=== PATIENT | male | born 1985 | race Caucasian/White ===

== ENCOUNTER 2023-01-29 08:57 | Emergency (ER) | payer BC, SELFPAY ==
[2023-01-29 09:03] VITALS: BP 130/72; PULSE 113; RESP 16; TEMP 36.9; O2SAT 99
--- NOTE | 2023-01-29 09:14 | ED.DENTAL ---
HPI - Dental/Oral General Chief complaint: Dental/Oral Stated complaint: tooth pain Time Seen by Provider: 01/29/23 09:14 Source: patient, RN notes reviewed and old records reviewed Mode of arrival: ambulatory Limitations: no limitations History of Present Illness HPI Narrative: 37-year-old male who presents to [facility] with complaints of dental pain which initially started 2 weeks ago but did resolve on its own but then reoccurred 3 days ago to molar # 30 on right side with facial/jaw swelling noted . Patient states that he broke his tooth off eating a corn nut a few months ago Patient reports no difficulty with swallowing or breathing. Patient reports that he has been taking Ibuprofen for his discomfort. MD Complaint: tooth pain Location: Tooth # (30) Onset (ago): week(s) (initially 2 weeks resolved and resumed 3 days ago) Severity scale (1-10): 8 Treatment prior to arrival: oral analgesic (Ibuprofen) Related Data Allergies Allergy/AdvReac Type Severity Reaction Status Date / Time No Known Allergies Allergy Verified 01/29/23 09:09 Review of Systems Review of Systems: CONSTITUTIONAL: Denies fever, chills, or sweats. ENT: Denies rhinorrhea, congestion, sore throat, or otalgia. Reports dental pain to right molar#30 which is broken off with right sided facial swelling CARDIOVASCULAR: Denies chest pain, palpitations, or edema. RESPIRATORY: Denies cough or dyspnea. SKIN: Denies rash or itching. MUSCULOSKELETAL: Denies myalgia. NEUROLOGIC: Denies headache All systems reviewed & are unremarkable except as noted in HPI and below PMFSH Social History Social History (Updated 01/30/23 @ 11:41 by Cherelle Jimenes NP) Smoking status: Current every day smoker Tobacco type: cigarettes Alcohol intake: current Alcohol use details: social Substance use type: does not use Living arrangements: with family Gender identity (if verbalized by the patient): Male Comments At time of signature, agree with nursing past medical, surgical, social and family history. There is no relevant family history pertinent to the presenting complaint Exam Narrative: GENERAL: Well-appearing, well-nourished, and in no acute distress. HEAD: Normocephalic, atraumatic. EYES: PERRLA and EOMI. ENT: Nares clear, no rhinorrhea or epistaxis. Mucous membranes moist. Missing teeth, #30 broken tooth, caries noted no Ramiro angina or any trismus NECK: Supple. no lymphadenopathy CHEST: Clear to auscultation. No respiratory distress. SAO2 99% on room air HEART: Regular rate and rhythm. No murmur heard. Normal peripheral pulses. SKIN: Warm, dry, no rash. NEURO: No focal deficits. Alert and oriented x3. Course Course Emergency Course: Patient is aware of diagnosis, understands and agrees to treatment plan. Anticipatory guidance given. Patient agrees to follow-up as directed and is aware of reasons to seek care at the emergency department. Portions of this record may have been created with voice recognition software Level of Care: [facility] Visit Vital Signs Vital signs: Vital Signs Temperature 36.9 C 01/29/23 09:03 Pulse Rate 113 H 01/29/23 09:03 Respiratory Rate 16 01/29/23 09:03 Blood Pressure 130/72 01/29/23 09:03 Pulse Oximetry 99 01/29/23 09:03 Oxygen Delivery Room Air 01/29/23 09:03 Temperature 36.9 C 01/29/23 09:03 Pulse Rate 113 H 01/29/23 09:03 Respiratory Rate 16 01/29/23 09:03 Blood Pressure 130/72 01/29/23 09:03 Pulse Oximetry 99 01/29/23 09:03 Oxygen Delivery Room Air 01/29/23 09:03 Reviewed MDM - Dental/Oral MDM Narrative Medical decision making narrative: Patients pain and complaint coupled with physical findings are consistent with dentalgia. There are no focal signs of space occupying lesions that are compromising to the airway; no dysphagia, odynophagia, dysphonia, or dyspnea. No uvular deviation or soft palate edema. Patient is non-toxic appearing. The floor of the mout
== END 2023-01-29 09:29 | disposition home or self-care (01) ==
PROVIDERS: Emergency Provider Registered Nurse
DX: K04.7 Periapical abscess without sinus (principal); F17.210 Nicotine dependence, cigarettes, uncomplicated
CPT/HCPCS: 99213; G0463